=== PATIENT | female | born 1985 | race African-American/Black ===

== ENCOUNTER → 2016-10-13 | Outpatient (CLI) | payer BC ==
--- NOTE | 2016-10-13 14:21 | DIAGNOSTIC IMAGING REPORT ---
LEFT HIP 2 VIEWS CLINICAL HISTORY: Left lower quadrant abdominal pain. FINDINGS: AP and frog-leg views of left hip are obtained. No prior studies are available for comparison at the time of dictation. The skeletal structures are well mineralized. No fracture is seen in the left hip or the left hemipelvis. The joint space of left hip is well maintained. The left sacroiliac joint is normal. The overlying soft tissues are within normal limits. An intrauterine device is present in the pelvis. IMPRESSION: Unremarkable radiographic assessment of the left hip. Electronically signed by: Olievr Thornton M.D. 10/13/2016 2:20 PM Dictated Date/Time: 10/13/2016 2:19 PM
== END | disposition home or self-care (01) ==
LOC: C.RAD1850 13:41
PROVIDERS: ATTEND Family Medicine
DX: R10.32 Left lower quadrant pain (principal)